=== PATIENT | male | born 1980 | race Two or more races ===

== ENCOUNTER 2018-05-14 23:45 | Emergency (ER) | payer SELFPAY ==
[~2018-05-14] VITALS: Ht 165.1 cm; Wt 80.7 kg
[~2018-05-14 23:45] MED LIST: IBUPROFEN400 MG ORAL; NKM; NORCO 5-325 TA1 EACH ORAL
[2018-05-15] VITALS: BP 143/81
--- NOTE | 2018-05-15 | NUR ---
ED Nurse Note: Pt arriving for complaint of knee pain that began today. Pt states he felt an itch on left knee and scratched it without washing his hands after working in an extremely dirty area. Pt states 30 minutes later, knee became swollen, pain began radiating up the leg as well as down to the foot.
[2018-05-15] MEDS ORDERED: HYDROcodone/Acetamin 5/325 tab ORAL ONE (01:00)
[2018-05-15] MEDS ORDERED: IBUPROFEN600 MG ORAL (02:25)
[2018-05-15] MEDS ORDERED: HYDROCODON-ACE1 EA15 ORAL (02:25)
--- NOTE | 2018-05-15 02:25 | Emergency Room Report ---
History of Present Illness General Chief Complaint: Skin Rash/Abscess Source: Patient Present Illness HPI Is a 37-year-old male with no past medical history. He works in construction. He presents with left knee pain. Onset today. No trauma. Anus to the lateral aspect of the knee. There is some swelling. Is no fever. Rating down the leg. He felt numbness and pain. Worse with movement. Better with rest. No nausea no vomiting. Pain is 8 out of 10. Allergies: Coded Allergies: No Known Allergies (Unverified , 08/04/13) Patient History Past Medical History: see triage record, old chart reviewed Past Surgical History: none Pertinent Family History: none Social History: Denies: smoking Immunizations: other Reviewed Nursing Documentation: PMH: Agreed; PSxH: Agreed Nursing Documentation-PMH Past Medical History: No Stated History Review of Systems Eye: Denies: eye pain, blurred vision ENT: Denies: ear pain, nose congestion, throat swelling Respiratory: Denies: cough, shortness of breath Cardiovascular: Denies: chest pain, palpitations Gastrointestinal: Denies: abdominal pain, diarrhea, nausea, vomiting Musculoskeletal: Reports: joint pain; Denies: back pain Skin: Denies: rash Neurological: Denies: headache, numbness Endocrine: Denies: increased thirst, increased urine Hematologic/Lymphatic: Denies: easy bruising All Other Systems: negative except mentioned in HPI Physical Exam Vital Signs Date Time Temp Pulse Resp B/P (MAP) Pulse Ox O2 Delivery O2 Flow Rate FiO2 05/14/18 23:55 98.4 70 26 143/81 99 Room Air vitals normal Sp02 EP Interpretation: reviewed, normal General Appearance: well appearing, no apparent distress, alert Head: normocephalic, atraumatic Eyes: bilateral eye PERRL, bilateral eye EOMI ENT: hearing grossly normal, normal pharynx Neck: full range of motion, supple, no meningismus Respiratory: chest non-tender, lungs clear, normal breath sounds Cardiovascular #1: regular rate, rhythm, no murmur Gastrointestinal: normal bowel sounds, non tender, no mass, no organomegaly, no bruit, non-distended Musculoskeletal: back normal, other - Left knee: There is effusion and tenderness to the lateral aspect of the knee. Knee is stable. Tender to palpation. No redness. Mild warmth. Psychiatric: mood/affect normal Skin: warm/dry Procedures Splinting Splinting : Consent: Verbal Location: Left knee Pre-Made Type: knee immobilizer Pre-Proc Neuro Vasc Exam: normal Post-Proc Neuro Vasc Exam: normal Patient Tolerated: Well Complications: None Progress crutches give Medical Decision Making Diagnostic Impression: Primary Impression: Patellar bursitis of left knee ER Course Patient with bursitis of the left knee. He has good range of motion even though tender. I see no evidence of septic joint since I see no redness or trauma. This could also be inflammatory process like gout. Other X-Ray Diagnostic Results Other X-Ray Diagnostic Results : X-Ray ordered: left knee xrays # of Views/Limited Vs Complete: Complete Indication: Pain EP Interpretation: Yes Interpretation: no dislocation, no soft tissue swelling, no fractures Impression: No acute disease Electronically Signed by: Federico Cruz MD Last Vital Signs Date Time Temp Pulse Resp B/P (MAP) Pulse Ox O2 Delivery O2 Flow Rate FiO2 05/15/18 00:00 98.4 78 26 143/81 99 Room Air Status: improved Disposition: HOME, SELF-CARE Condition: Stable Scripts Ibuprofen* (MOTRIN*) 600 Mg Tablet 600 MG ORAL THREE TIMES A DAY, #30 TAB 0 Refills Prov: Federico Cruz MD 05/15/18 Hydrocodone/Acetaminophen 5-325* (HYDROCODONE/ACETAMINOPHEN 5-325*) 1 Each Tablet 1 TAB ORAL Q6H PRN for For Pain, #15 TAB 0 Refills Prov: Federico Cruz MD 05/15/18 Referrals: NOT CHOSEN [facility]/,REFERRING (PCP) Additional Instructions: Follow-up with your DrJessica in 2 to 3 days for recheck of not better. Return for fever, increasing pain or any concern. Federico Cruz MD May 15, 2018 02:25
[2018-05-15 02:33] VITALS: BP 137/67
--- NOTE | 2018-05-15 02:33 | NUR ---
ED Nurse Note: Pt cleared by . Pt A/Ox4. Discharge instructions and prescriptions provided. pt verbalized understanding of all instructions. ID band removed. All belongings taken with pt. Pt ambulated out of ED with crutches and knee imobilizer. Pt accompanied by son.
--- NOTE | 2018-05-15 11:09 | Diagnostic Imaging Report ---
Indication: Left knee pain Technique: 4 views of the left knee Comparison: None Findings: No acute fractures. No dislocations. No suprapatellar effusion. The joint spaces are preserved. There is evidence of prepatellar/infrapatellar skin thickening Impression: No acute bony trauma
== END 2018-05-15 02:33 | disposition home or self-care (01) ==
LOC: EMR 05-15 00:30
DX: M70.52 Other bursitis of knee, left knee (principal)
CPT/HCPCS: 29505; 99283